=== PATIENT | female | born 1965 | race Caucasian/White ===

== ENCOUNTER 2016-11-21 06:40 | Day surgery (SDC) | payer OTHER ==
[2016-11-20 08:41] VITALS: BMI 25.0
[~2016-11-21 06:40] MED LIST: DEXAMETHASONE SOD PHOSPHATE 10 MG/ML 1 ML VIAL IV ONE; DEXAMETHASONE SOD PHOSPHATE 4 MG/ML 1 ML VIAL IV ONE; FAMOTIDINE 20 MG/2 ML VIAL IV ONE; HYDROmorphone 1 MG/ML 1 ML SYRINGE IVP PRN; LACTATED RINGERS 1,000 ML IV SCH; LIDOCAINE 1% 20 ML VIAL (10MG/ML) FOR IV START INTRADERMA PRN; ONDANSETRON 4 MG/2 ML VIAL IVP ONE; SCOPOLAMINE 1.5MG/72HR PATCH TRANSDERM ONE; ceFAZolin 2 GM in SODIUM CHLORIDE 0.9% 100 ML IVPB ONE
[2016-11-21 06:56] VITALS: RESP 16
[2016-11-21] MEDS ORDERED: LIDOCAINE 1% INJ 10MG/ML (20 ML MDV) ONE (07:20)
[2016-11-21] MEDS ORDERED: PROPOFOL 10 MG/ML 20 ML VIAL IV ONE (07:20)
[2016-11-21] MEDS ORDERED: SUCCINYLCHOLINE CHLORIDE 100 MG/5 ML SYR IV ONE (07:20)
[2016-11-21] MEDS ORDERED: MIDAZOLAM 2 MG/2 ML VIAL ONE (07:20)
[2016-11-21] MEDS ORDERED: DEXAMETHASONE SOD PHOS (MDV) 100 MG/10 ML VIAL ONE (07:20)
[2016-11-21] MEDS ORDERED: fentaNYL (PF) 50 MCG/ML 2 ML AMP ONE (07:20)
[2016-11-21] MEDS ORDERED: EPINEPHrine 10 ML SYRINGE (0.1 MG/ML) MISCELLANE ONE (07:51)
[2016-11-21 08:09] VITALS: TEMP 97.4
--- NOTE | 2016-11-21 08:15 | P.OP ---
Date of Procedure: 11/21/16 Preoperative Diagnosis: Bilateral vocal cord polyposis Severe hoarseness Shortness of breath Tobacco addiction and use Chronic laryngitis Postoperative Diagnosis: Same Procedure(s) Performed: Direct microscopic laryngoscopy and removal of a right vocal cord polyp with a foot drill operator blade Anesthesia: JANETH Surgeon: Valentino Charles Estimated Blood Loss (ml): 0 Pathology: other (Right vocal cord polyp) Condition: stable Disposition: PACU Indications for Procedure: This patient has smoked for over 36 years and her voice is getting progressively worse over the last 8 years. She has some shortness of breath severe hoarseness and she is worried about throat cancer. She was examined in the office since was found have severe bilateral vocal cord polyposis. The polyposis did narrative the airway significantly. She had clear evidence of chronic laryngitis which appears to be all secondary to her tobacco use. Tobacco use was discouraged. She wished to proceed forward with removal of her vocal cord polyps. She was told that this is a 2-stage procedure and that we cannot remove bilateral vocal cords at the same time because of the potential for well being. She understands this and all risks, benefits, and alternative therapies were discussed. Consent was obtained and all questions were answered. Operative Findings: Massive bilateral vocal cord polyposis. Description of Procedure: This patient was taken to the operative room and placed in the supine position. A general inhalation anesthetic was administered to the patient by mask and subsequently intubated with a #5 microlaryngoscopy tube. A tooth guard was placed on the upper teeth and a Jako laryngoscope was placed into the patient's mouth with care to avoid any trauma to the lips teeth gums and tongue. Mouth was opened tongue was depressed and the entire Clayton and hypopharynx was evaluated including the base of tongue vallecula, epiglottis, lateral pharynx, piriform sinus, postcricoid space, true and false vocal cords etc. This was placed on suspension on a Lewy and the vocal cords were magnified with a Zeiss variable focal length microscope. Examination of the vocal cords revealed bilateral massive vocal cord polyps. With use of a foot drill operator blade, the right vocal cord polyp was removed which was massive. She tolerated this well. We did apply topical adrenaline to the vocal cord to prevent any bleeding. No bleeding was encountered. Patient tolerated this well. Instrumentation was removed and the patient was taken to postanesthesia recovery in excellent condition. Patient will be following up with me on November 27 at 9:15. She is on total voice rest for 7 days.
[2016-11-21] MEDS ORDERED: Acetaminophen-Codeine 300-30mg TAB PO ONE (09:11)
[2016-11-21 09:31] VITALS: BP 130/82; PULSE 73
--- NOTE | 2016-11-21 09:38 | P.OP ---
Preoperative Diagnosis: Chronic sinusitis Polypoid degeneration ALLERGIC fungal sinusitis Postoperative Diagnosis: same Procedure(s) Performed: Bilateral functional endoscopic sinus surgery of both maxillary sinuses and total ethmoidectomies with removal of polypoid degeneration fungal elements Implants: Propel bilaterally Anesthesia: BYRONA Surgeon: Valentino Charles Estimated Blood Loss (ml): 5 Pathology: other (Sinonasal) Condition: stable Disposition: PACU Indications for Procedure: This patient presented to the office with continued sinonasal symptoms that was not amenable to medical therapy. She had issues with anosmia, constant discolored drainage, nasal congestion, facial pain and pressure etc. she failed irrigations antibiotics cortisone nasal sprays and wishes to proceed forward with sinus surgery. She did undergo endoscopy and polypoid degeneration and fungal elements were noted. All risks, benefits, and alternative therapies were discussed in detail. Consent was obtained and all questions were answered. Operative Findings: Chronic sinusitis of the bilateral maxillary and ethmoid sinuses with polypoid degeneration and fungal elements noted Description of Procedure: This patient was taken to the operative room and placed in the supine position. A general inhalation anesthetic was administered to the patient by mask and subsequently intubated with a cuffed endotracheal tube by the department of anesthesia with a functioning IV line in place. The patient was monitored throughout the entire case by the department of anesthesia. The sphenopalatine ganglion was injected with lidocaine 1% with epinephrine 1 100,000. The lateral nasal wall was also injected with lidocaine 1% with epinephrine 1 100, 000. 10 minutes were allowed wait for full vasoconstrictive effects to take place. At this time and infraturbinal maxillary antrostomy was performed bilaterally with a Matthieu and a microdebrider. Maxillary sinus was opened underneath the inferior turbinates and a nasal antral window was performed. The maxillary sinuses were entered and polypoid disease and fungal elements were removed. We then opened the maxillary sinuses above the inferior turbinate. We remove diseased tissue and opened and explored this this was done with 0 and 30 Anthony nam endoscopes. After the maxillary sinuses were open and endoscopy was performed we continued our dissection and a complete ethmoidectomy was performed with removal of diseased elements and all the intersinus septations. We removed all diseased tissue of the ethmoid sinuses both anteriorly and posteriorly bilaterally. This was done with use of endoscopes. After a total ethmoidectomy was performed bilaterally along with a supraturbinal maxillary antrostomy with removal of diseased elements with endoscopy, propel was inserted bilaterally and contour was placed on the left side. These drug-eluting stents were placed and excellent positioning was accomplished. The patient tolerated this well. Mayra was then inserted. This was used for hemostasis. The patient was taken to postanesthesia recovery in excellent condition. Patient is to rest with head elevated and not to blow her nose. The patient has a follow-up appointment on November 25 at 3:15 PM.
== END 2016-11-21 09:58 | disposition home or self-care (01) ==
LOC: OR 06:40
PROVIDERS: ATTEND Otolaryngology
DX: J38.1 Polyp of vocal cord and larynx (principal); F17.200 Nicotine dependence, unspecified, uncomplicated
CPT/HCPCS: 81025; 88305; 31541; J2250; J1100 ×2; J0690; J2405; J2001; J0171; J3010; J0330; J2704

== ENCOUNTER 2017-01-16 07:14 | Day surgery (SDC) | payer OTHER ==
[2017-01-14 11:26] VITALS: BMI 25.0
[~2017-01-16 07:14] MED LIST changes: -LACTATED RINGERS 1,000 ML IV SCH; +MIDAZOLAM 2 MG/2 ML VIAL IV PRN; +OXYMETAZOLINE 0.05% NASL SPRAY 1 SPRAY BOTTLE NASAL ONE; +ceFAZolin 1,000 MG in DEXTROSE/WATER 1 50ML.BAG IV ONE; -ceFAZolin 2 GM in SODIUM CHLORIDE 0.9% 100 ML IVPB ONE
[2017-01-16] MEDS: LACTATED RINGERS 1,000 ML IV SCH ×2 (08:00→08:12)
[2017-01-16] MEDS ORDERED: GLYCOPYRROLATE 0.2 MG/ML 2 ML VIAL ONE (08:33)
[2017-01-16] MEDS ORDERED: LIDOCAINE 1% INJ 10MG/ML (20 ML MDV) ONE (08:33)
[2017-01-16] MEDS ORDERED: NEOSTIGMINE 1 MG/ML 10 ML VIAL ONE (08:33)
[2017-01-16] MEDS ORDERED: PROPOFOL 10 MG/ML 20 ML VIAL IV ONE (08:33)
[2017-01-16] MEDS ORDERED: ROCURONIUM BROMIDE 10 MG/ML 10 ML VIAL IV ONE (08:33)
[2017-01-16] MEDS ORDERED: SUCCINYLCHOLINE CHLORIDE 100 MG/5 ML SYR IV ONE (08:33)
[2017-01-16] MEDS ORDERED: MIDAZOLAM 2 MG/2 ML VIAL ONE (08:33)
[2017-01-16] MEDS ORDERED: DEXAMETHASONE SOD PHOS (MDV) 100 MG/10 ML VIAL ONE (08:33)
[2017-01-16] MEDS ORDERED: fentaNYL (PF) 50 MCG/ML 2 ML AMP ONE (08:33)
[2017-01-16] MEDS: ceFAZolin IN SWFI 2 GM/20 ML SYRINGE IVP ONE ×2 (08:39→08:45)
[2017-01-16 09:30] VITALS: TEMP 97
--- NOTE | 2017-01-16 09:41 | P.OP ---
Date of Procedure: 01/16/17 Preoperative Diagnosis: Left vocal cord polyp Chronic laryngitis Hoarseness dysphonia Postoperative Diagnosis: same Procedure(s) Performed: Direct microscopic laryngoscopy with removal of left vocal cord polyp Anesthesia: BYRONA Surgeon: Valentino Charles Estimated Blood Loss (ml): 5 Pathology: other (left vocal cord mass) Condition: stable Disposition: PACU Indications for Procedure: Pt has had severe hoarseness from bilateral vocal cord polyposis and underwent right vocal cord polypectomy in Sept and voice has improved. She is here for her planned left vocal cord polypectomy. All risks, benefits and alternative treatments discussed. Consent was obtained and all questions answered. Operative Findings: Huge left vocal cord polyp noted. Generalized inflammation noted to the entire hypopharynx. Description of Procedure: This patient was taken to the operative room and placed in the supine position. A general inhalation anesthetic was administered to the patient by mask and subsequently intubated with a #5 WAREHOUSE INVENTORY CLERK tube. A Jako laryngoscope was placed into the patient's mouth where tooth guard in place and the entire Clayton and hypopharynx was evaluated including the base of tongue, vallecula, epiglottis, true and false vocal cords, lateral pharynx, piriform sinus, postcricoid space etc. etc. This was placed on suspension on a Lewy. The vocal cords were magnified with a high-powered scope. Very large left vocal cord polyps were noted. They were gently removed with use of a natural gas inspector blade. We did this with care to avoid any trauma to the lamina propria. The left polyp was removed and the patient tolerated this well. Follow-up will be in the office in 1 week for recheck. Patient is on one week of total voice rest. All instrumentation was removed.
[2017-01-16] MEDS ORDERED: LACTATED RINGERS 1,000 ML IV ONE (09:51)
[2017-01-16 10:13] VITALS: RESP 16
[2017-01-16] MEDS ORDERED: Acetaminophen-Codeine 300-30mg TAB PO STA (10:30)
[2017-01-16 11:00] VITALS: BP 124/73; PULSE 72
== END 2017-01-16 11:33 | disposition home or self-care (01) ==
LOC: OR 07:14
PROVIDERS: ATTEND Otolaryngology
DX: J38.1 Polyp of vocal cord and larynx (principal); Z72.0 Tobacco use
CPT/HCPCS: 31541; 81025; 88305; J2250; J1100 ×2; J2710; J0690; J2405; J2001; J3010; J0330; J2704